=== PATIENT | male | born 1990 | race Caucasian/White ===

== ENCOUNTER 2019-01-20 18:17 | Emergency (ER) | payer BC, MEDICAID ==
[2019-01-20] MEDS ORDERED: Ketorolac 60 MG/2 ML SDV IM ONE (18:24)
[2019-01-20] MEDS ORDERED: Diazepam 5 MG Tab PO ONE (18:24)
--- NOTE | 2019-01-20 18:36 | EDM.PDOC ---
ED HPI GENERAL MEDICAL PROBLEM - General Chief Complaint: General Stated Complaint: INJURED HIP Time Seen by Provider: 01/20/19 18:20 Source of Information: Reports: Patient History Limitations: Reports: No Limitations - History of Present Illness Onset: Sudden Onset Date: 01/19/19 Onset Time: 20:00 Duration: Day(s): Location: Reports: Pelvis Quality: Reports: Ache, Sharp Severity: Moderate Improves with: Reports: None Worsens with: Reports: Movement Context: Reports: Activity Associated Symptoms: Reports: No Other Symptoms ED ROS GENERAL - Review of Systems Review Of Systems: Comprehensive ROS is negative, except as noted in HPI. Constitutional: Reports: No Symptoms HEENT: Reports: No Symptoms Respiratory: Reports: No Symptoms Cardiovascular: Reports: No Symptoms Endocrine: Reports: No Symptoms GI/Abdominal: Reports: No Symptoms : Reports: No Symptoms Musculoskeletal: Reports: Leg Pain (Left), Joint Pain (Left hip) Skin: Reports: No Symptoms Neurological: Reports: No Symptoms Psychiatric: Reports: No Symptoms Hematologic/Lymphatic: Reports: No Symptoms Immunologic: Reports: No Symptoms ED EXAM, GENERAL - Physical Exam Exam: See Below Exam Limited By: No Limitations General Appearance: Alert, WD/WN, Mild Distress Nose: Normal Inspection Throat/Mouth: Normal Inspection, Normal Oropharynx, No Airway Compromise Head: Atraumatic, Normocephalic Neck: Normal Inspection, Supple, Non-Tender, Full Range of Motion Respiratory/Chest: No Respiratory Distress, Lungs Clear, Normal Breath Sounds, No Accessory Muscle Use, Chest Non-Tender Cardiovascular: No Murmur, Tachycardia GI/Abdominal: Normal Bowel Sounds, Soft, Non-Tender Back Exam: Normal Inspection. No: CVA Tenderness (L), CVA Tenderness (R) Extremities: Leg Pain (Left lateral hip extending to mid thigh) Neurological: Alert, Oriented, Normal Cognition Psychiatric: Normal Affect, Normal Mood Skin Exam: Warm, Dry, Intact, Normal Color, No Rash Lymphatic: No Adenopathy Course - Orders/Labs/Meds Orders: Active Orders 24 hr Category Date Time Status Hip Min 2V or 3V Lt [CR] Stat Exams 01/20/19 18:24 Ordered Ketorolac [Toradol] Med 01/20/19 18:24 Once 60 mg IM ONETIME ONE diazePAM [Valium] Med 01/20/19 18:24 Once 10 mg PO ONETIME ONE - Radiology Interpretation Free Text/Narrative:: Left hip x-ray shows no fracture or dislocation - Re-Assessments/Exams Free Text/Narrative Re-Assessment/Exam: 01/20/19 19:02 Patient afebrile, vital signs stable, pain mostly resolved after medication. Departure - Departure Time of Disposition: 19:03 Disposition: Home, Self-Care 01 Condition: Good Clinical Impression: Strain of hip adductor muscle Qualifiers: Encounter type: initial encounter Laterality: left Qualified Code(s): S76.012A - Strain of muscle, fascia and tendon of left hip, initial encounter - Discharge Information Instructions: Muscle Strain, [id number], Adductor Muscle Strain Additional Instructions: Follow-up with PCP. Return to emergency department if symptoms continue or worsen - My Orders Last 24 Hours: My Active Orders 01/20/19 18:24 Hip Min 2V or 3V Lt [CR] Stat Ketorolac [Toradol] 60 mg IM ONETIME ONE diazePAM [Valium] 10 mg PO ONETIME ONE - Assessment/Plan Last 24 Hours: My Active Orders 01/20/19 18:24 Hip Min 2V or 3V Lt [CR] Stat Ketorolac [Toradol] 60 mg IM ONETIME ONE diazePAM [Valium] 10 mg PO ONETIME ONE Assessment:: Muscle strain Plan: Follow-up with PCP
--- NOTE | 2019-01-20 18:58 | CR ---
[id number] RAD/RAD Hip Left 2-3V EXAM: 2 VIEWS LEFT HIP. INDICATION: TRAUMA. COMPARISON: None. DISCUSSION: No fracture, dislocation or other acute osseous abnormality. IMPRESSION: 1. Negative exam. Mike Richard DO 01/20/19 [id number] Thank you for allowing us to participate in the care of your patient.
== END 2019-01-20 19:20 | disposition home or self-care (01) ==
LOC: KA.ED 18:17
DX: S76.012A Strain of muscle, fascia and tendon of left hip, initial encounter (principal); X58.XXXA Exposure to other specified factors, initial encounter; Y93.89 Activity, other specified
CPT/HCPCS: 73502; 96372; 99283; A9270; J1885

== ENCOUNTER 2019-01-22 18:17 | Emergency (ER) | payer BC, MEDICAID ==
[2019-01-22] MEDS ORDERED: Sodium Chloride 0.9% 1,000 ML IV ONE (18:46)
[2019-01-22] MEDS ORDERED: Ketorolac 30 MG/ML SDV IVPUSH ONE (18:46)
[2019-01-22] MEDS ORDERED: Sodium Chloride 0.9% 10 ML Syringe FLUSH PRN (18:46)
--- NOTE | 2019-01-22 18:54 | EDM.PDOC ---
ED HPI GENERAL MEDICAL PROBLEM - General Chief Complaint: Lower Extremity Injury/Pain Stated Complaint: PULLED MUSCLE? Time Seen by Provider: 01/22/19 18:45 Source of Information: Reports: Patient History Limitations: Reports: No Limitations - History of Present Illness INITIAL COMMENTS - FREE TEXT/NARRATIVE: She has a 28-year-old gentleman who presents to the emergency department this evening via private vehicle and has a complaint of abdominal pain and left hip pain. Patient was seen here 2 days ago for injury to left hip. At that time patient states that he was moving a dresser and pulled a muscle. Patient states pain in hip has remained but now he has abdominal pain. Patient states he has had a bowel movement in 3 days. Patient denies further injury, chest pain, shortness of breath, nausea, vomiting, diarrhea, flank pain, or previous abdominal surgery. Onset: Gradual Onset Date: 01/19/19 Duration: Day(s): Location: Reports: Abdomen, Lower Extremity, Left Quality: Reports: Ache, Sharp Improves with: Reports: None Worsens with: Reports: Movement Context: Reports: Activity Associated Symptoms: Reports: No Other Symptoms Treatments BLIND LACER: Reports: Other (see below) Other Treatments BLIND LACER: MUSCLE RELAXANT, ALEVE, TYLENOL, IBUPROFEN Left Pain Score (Numeric/FACES): 7 - Related Data Allergies Allergy/AdvReac Type Severity Reaction Status Date / Time amoxicillin Allergy Hives Verified 01/22/19 18:35 Home Meds: Home Meds Gabapentin [Neurontin] 900 mg PO DAILY 01/20/19 [History] Insulin Aspart [NovoLOG] 2 unit SQ TID 01/20/19 [History] Insulin Detemir [Levemir] 45 unit SQ BID 01/20/19 [History] Methocarbamol [Robaxin-750] 750 mg PO Q6HR #20 tablet 01/20/19 [Rx] Past Medical History Cardiovascular History: Reports: Blood Clots/VTE/DVT Respiratory History: Reports: PE Musculoskeletal History: Reports: Amputation Neurological History: Reports: Neuropathy, Diabetic Other Neuro History: BILATERAL FEET AND LEFT Psychiatric History: Reports: Depression Endocrine/Metabolic History: Reports: IDDM Other Endocrine/Metabolic History: Diabetes, unsure of type Dermatologic History: Reports: Other (See Below) Other Dermatologic History: MULTIPLE SCARS TO BODYY - Past Surgical History Cardiovascular Surgical History: Reports: None Neurological Surgical History: Reports: None Musculoskeletal Surgical History: Reports: Other (See Below) Other Musculoskeletal Surgeries/Procedures:: Left big toe removal Dermatological Surgical History: Reports: None Social & Family History - Family History Family Medical History: Noncontributory - Tobacco Use Smoking Status *Q: Never Smoker - Caffeine Use Caffeine Use: Reports: Coffee, Energy Drinks, Soda Other Caffeine Use: DIET POP - Recreational Drug Use Recreational Drug Use: No Review of Systems - Review of Systems Review Of Systems: Comprehensive ROS is negative, except as noted in HPI. Constitutional: Reports: No Symptoms Eyes: Reports: No Symptoms Ears: Reports: No Symptoms Nose: Reports: No Symptoms Mouth/Throat: Reports: No Symptoms Respiratory: Reports: No Symptoms Cardiovascular: Reports: No Symptoms GI/Abdominal: Reports: Abdominal Pain Genitourinary: Reports: No Symptoms Musculoskeletal: Reports: Leg Pain (Left hip and thigh) Skin: Reports: No Symptoms Neurological: Reports: No Symptoms Psychiatric: Reports: No Symptoms ED EXAM, GENERAL - Physical Exam Exam: See Below Exam Limited By: No Limitations General Appearance: Alert, WD/WN, Mild Distress Throat/Mouth: Normal Inspection, Normal Oropharynx, No Airway Compromise Head: Atraumatic, Normocephalic Neck: Normal Inspection, Supple, Non-Tender, Full Range of Motion Respiratory/Chest: No Respiratory Distress, Lungs Clear, Normal Breath Sounds, No Accessory Muscle Use, Chest Non-Tender Cardiovascular: Regular Rate, Rhythm, No Murmur, No Rub GI/Abdominal: Normal Bowel Sounds, Soft, Tender (Lower abdomen and suprapubic). No: Distended, Guarding, Rigid, Rebound, Hernia, Mass (Male) Exam: No Hernia, Normal Inspection Back Exam: Normal Inspection. No: CVA Tenderness (L), CVA Tenderness (R) Extremities: No Pedal Edema, Leg Pain (Tenderness to palpation of Left hip and left thigh. No edema, crepitus, ecchymosis, or firmness noted.) Neurological: Alert, Oriented, Normal Cognition Psychiatric: Normal Affect, Normal Mood Skin Exam: Warm, Dry, Intact, Normal Color, No Rash Lymphatic: No Adenopathy Course - Vital Signs Last Recorded V/S: Last Vital Signs Temp 98.3 F 01/22/19 18:21 Pulse 115 H 01/22/19 18:21 Resp 18 01/22/19 18:21 BP 135/77 01/22/19 18:21 Pulse Ox 99 01/22/19 18:21 - Orders/Labs/Meds Orders: Active Orders 24 hr Category Date Time Status Peripheral IV Care [RC] . DIRECTED Care 01/22/19 18:47 Ordered Abdomen Pelvis wo Cont [CT] Stat Exams 01/22/19 18:46 Ordered CBC WITH AUTO DIFF [HEME] Stat Lab 01/22/19 18:46 Ordered COMPREHENSIVE METABOLIC PN,CMP [CHEM] Stat Lab 01/22/19 18:46 Ordered Sodium Chloride 0.9% @ 999 MLS/HR (1000ml) Med 01/22/19 18:46 Ordered Sodium Chloride 0.9% [Normal Saline] 1,000 ml IV .BOLUS Sodium Chloride 0.9% [Saline Flush] Med 01/22/19 18:46 Ordered 10 ml FLUSH Q8HR PRN Peripheral IV Insertion Adult [OM.PC] Routine Oth 01/22/19 18:46 Ordered Medication Orders Sodium Chloride (Normal Saline) 1,000 mls @ 999 mls/hr IV .BOLUS ONE Stop: 01/22/19 19:46 Sodium Chloride (Saline Flush) 10 ml FLUSH Q8HR PRN PRN Reason: keep vein open Meds: Medications Generic Name Dose Route Start Last Admin Trade Name Freq PRN Reason Stop Dose Admin Sodium Chloride 1,000 mls @ 999 mls/hr 01/22/19 18:46 Normal Saline IV 01/22/19 19:46 .BOLUS ONE Sodium Chloride 10 ml 01/22/19 18:46 Saline Flush FLUSH Q8HR PRN keep vein open Discontinued Medications Generic Name Dose Route Start Last Admin Trade Name Freq PRN Reason Stop Dose Admin Ketorolac Tromethamine 30 mg 01/22/19 18:46 Toradol IVPUSH 01/22/19 18:47 ONETIME ONE - Radiology Interpretation Free Text/Narrative:: CT abdomen and pelvis shows no acute abnormality in abdomen or pelvis - Re-Assessments/Exams Free Text/Narrative Re-Assessment/Exam: 01/22/19 20:29 Patient afebrile, nontoxic appearing, vital signs stable. Discuss at length with patient about his uncontrolled diabetes. Patient currently checks his sugars once to twice a week and is intermittently in taking his insulin. Instructed him he needs to check it daily and take insulin as directed. Patient will follow-up with PCP in 2 days. WBC mildly elevated, but no source of infection. 01/22/19 20:30 Departure - Departure Time of Disposition: 20:34 Disposition: Home, Self-Care 01 Condition: Good Clinical Impression: Insulin dependent diabetes mellitus, Hyperglycemia Abdominal pain Qualifiers: Abdominal location: generalized Qualified Code(s): R10.84 - Generalized abdominal pain Strain of hip adductor muscle Qualifiers: Encounter type: initial encounter Laterality: left Qualified Code(s): S76.012A - Strain of muscle, fascia and tendon of left hip, initial encounter - Discharge Information Instructions: Diabetes Mellitus and Standards of Medical Care, Diabetes Mellitus and Nutrition, Adult, Abdominal Pain, Adult, [id number] Referrals: PCP,Not In Area [Primary Care Provider] - Additional Instructions: Follow-up with PCP in next 2 days. Check glucose daily and take insulin as directed. Return to emergency department sooner if symptoms continue or worsen. - My Orders Last 24 Hours: My Active Orders 01/22/19 18:46 Abdomen Pelvis wo Cont [CT] Stat CBC WITH AUTO DIFF [HEME] Stat COMPREHENSIVE METABOLIC PN,CMP [CHEM] Stat Sodium Chloride 0.9% @ 999 MLS/HR (1000ml) Sodium Chloride 0.9% [Normal Saline] 1,000 ml IV .BOLUS Sodium Chloride 0.9% [Saline Flush] 10 ml FLUSH Q8HR PRN Peripheral IV Insertion Adult [OM.PC] Routine 01/22/19 18:47 Peripheral IV Care [RC] . DIRECTED - Assessment/Plan Last 24 Hours: My Active Orders 01/22/19 18:46 Abdomen Pelvis wo Cont [CT] Stat CBC WITH AUTO DIFF [HEME] Stat COMPREHENSIVE METABOLIC PN,CMP [CHEM] Stat Sodium Chloride 0.9% @ 999 MLS/HR (1000ml) Sodium Chloride 0.9% [Normal Saline] 1,000 ml IV .BOLUS Sodium Chloride 0.9% [Saline Flush] 10 ml FLUSH Q8HR PRN Peripheral IV Insertion Adult [OM.PC] Routine 01/22/19 18:47 Peripheral IV Care [RC] . DIRECTED Assessment:: Abdominal pain Plan: Follow-up with PCP
[2019-01-22] MEDS ORDERED: Ondansetron 4 MG/2 ML SDV IVPUSH ONE (18:57)
[2019-01-22 19:29] LABS: CHLORIDE,CL 99 mmol/L (98-115); SODIUM,NA 134 mmol/L (136-145)
[2019-01-22] MEDS ORDERED: Insulin Isophane NPH, Human 100 Units/ML 10 ML Vial ONE (19:42)
--- NOTE | 2019-01-22 20:04 | CT ---
[id number] CT/CT Abdomen Pelvis WO IV EXAM: CT Abdomen Pelvis WO IV CLINICAL DATA: ABD PAIN. COMPARISON STUDY: None. FINDINGS: Findings are within limitation of no contrast material. Lung bases are clear. Liver, spleen, gallbladder, pancreas, adrenal glands, and kidneys are unremarkable. No urinary tract calculi. Urinary bladder is unremarkable. No bowel obstruction or inflammation. Appendix is normal. IMPRESSION: No significant abnormality in the abdomen or pelvis. Luciano Bailey MD 01/22/192002 Thank you for allowing us to participate in the care of your patient.
[2019-01-22] MEDS ORDERED: Ondansetron 4 MG Tab.DIS PO ONE (20:34)
== END 2019-01-22 21:15 | disposition home or self-care (01) ==
LOC: KA.ED 18:17
DX: S76.012A Strain of muscle, fascia and tendon of left hip, initial encounter (principal); E11.65 Type 2 diabetes mellitus with hyperglycemia; R10.84 Generalized abdominal pain; E11.40 Type 2 diabetes mellitus with diabetic neuropathy, unspecified; Z88.0 Allergy status to penicillin; Z79.4 Long term (current) use of insulin; Z79.899 Other long term (current) drug therapy; X58.XXXA Exposure to other specified factors, initial encounter
CPT/HCPCS: 36415; 74176; 80053; 81001; 82962; 85025; 96374; 96375; 99284-25; A9270-GY; J1885; J2405; J7030

== ENCOUNTER 2019-10-26 18:27 | Emergency (ER) | payer BC, MEDICAID, OTHER ==
[2019-10-26] MEDS ORDERED: Sodium Chloride 0.9% 1,000 ML ONE (18:45)
--- NOTE | 2019-10-26 18:47 | EDM.PDOC ---
<BettsChetan Dominga - Last Filed: 10/26/19 19:15> ED HPI GENERAL MEDICAL PROBLEM - General Chief Complaint: Behavioral/Psych Stated Complaint: UNRESPONSIVE, DIABETIC REACTION Time Seen by Provider: 10/26/19 18:28 Source of Information: Reports: Patient, EMS, Police History Limitations: Reports: No Limitations - History of Present Illness INITIAL COMMENTS - FREE TEXT/NARRATIVE: Presents via ambulance after former girlfriend summoned 911. José Miguel has had and appears to have experienced hypoglycemia as well as been making suicidal ideation and posts on social media of which law enforcement shared with us. Ambulance arrived finding hypoglycemic with Accu-Chek at 33. IV was established and treated with D10 and transported to the emergency department accompanied with law enforcement. History of poor diabetic compliance is acknowledged as well as his recent CABG for which he is uncertain as to what was done or how many vessels were done, but does acknowledge [place] in [place]. When questioned on his ideation and gesture if he took extra insulin he denies to me that this was done in self-harm. Law enforcement states the previous girlfriend stated that he did not handle their break-up well and that is when social media posts started occurring with end of life comments. Past history of poor diabetic compliance, sequela of medical illness secondary of that, as well as psychiatric disturbance. Onset: Today Duration: Minutes: Location: Reports: Generalized Severity: Severe Improves with: Reports: Medication Worsens with: Reports: None Context: Reports: Other (Ideation) - Related Data Allergies Allergy/AdvReac Type Severity Reaction Status Date / Time amoxicillin Allergy Hives Verified 10/26/19 18:38 Home Meds: Home Meds Gabapentin [Neurontin] 900 mg PO DAILY 01/20/19 [History] Insulin Aspart [NovoLOG] 2 unit SQ TID 01/20/19 [History] Insulin Detemir [Levemir] 30 unit SQ DAILY 01/20/19 [History] Escitalopram Oxalate [Lexapro] 20 mg PO DAILY 10/26/19 [History] Rivaroxaban [Xarelto] 20 mg PO DAILY 10/26/19 [History] Past Medical History Cardiovascular History: Reports: Blood Clots/VTE/DVT, CAD, High Cholesterol Respiratory History: Reports: PE Gastrointestinal History: Reports: None Musculoskeletal History: Reports: Amputation Neurological History: Reports: Neuropathy, Diabetic Other Neuro History: BILATERAL FEET AND LEFT Psychiatric History: Reports: Depression, Suicide Attempt, Suicidal Ideation Endocrine/Metabolic History: Reports: IDDM Other Endocrine/Metabolic History: Diabetes, unsure of type Dermatologic History: Reports: Other (See Below) Other Dermatologic History: MULTIPLE SCARS TO BODYY - Past Surgical History Cardiovascular Surgical History: Reports: Coronary Artery Bypass Neurological Surgical History: Reports: None Musculoskeletal Surgical History: Reports: Other (See Below) Other Musculoskeletal Surgeries/Procedures:: Left big toe removal Dermatological Surgical History: Reports: None Social & Family History - Family History Family Medical History: Noncontributory - Caffeine Use Caffeine Use: Reports: Coffee, Energy Drinks, Soda Other Caffeine Use: DIET POP ED ROS GENERAL - Review of Systems Review Of Systems: Comprehensive ROS is negative, except as noted in HPI. ED EXAM, GENERAL - Physical Exam Exam: See Below Free Text/Narrative:: Alert oriented x3 hesitant in cooperation but is not classified as non- cooperative. He denies any suicidal thought or gesture despite being confronted with social media documentation. PERRLA EOM intact. HEENT negative discharge or deformity. Neck soft supple no lymphadenopathy no JVD. Thorax is clear diminished breath sounds secondary of poor inspiratory cycle, likely cooperation. Cardiac S1-S2 I do not appreciate murmur. There is a sternal scar from his coronary artery bypass grafting. Abdomen is soft bowel sounds are present there is no tenderness. There are scars to the upper abdominal region as well as thorax. rectal is deferred. Lower extremities are free of any edema. Right foot is intact with skin warm and dry. Left foot shows amputation of the fifth digit as well as an irritation to the medial surface of the great toe, no evidence of infection at this time. EKG INTERPRETATION EKG Date: 10/26/19 Time: 19:05 Rhythm: NSR Rate (Beats/Min): 109 [place]: Normal P-Wave: Present QRS: Normal ST-T: Normal QT: Normal Comparison: NA - No Prior EKG Departure - Departure Disposition: DC/Tfer to Acute Hospital 02 Clinical Impression: Rhabdomyolysis, Hypoglycemia due to type 1 diabetes mellitus, Leukocytosis - Discharge Information Referrals: Pankaj Scott MD [Primary Care Provider] - Forms: ED Department Discharge - Problem List & Annotations (1) Hypoglycemia SNOMED Code(s): 227185069 Code(s): E16.2 - HYPOGLYCEMIA, UNSPECIFIED Status: Acute Priority: High Current Visit: No (2) Suicidal ideation SNOMED Code(s): 2299725 Code(s): R45.851 - SUICIDAL IDEATIONS Status: Acute Priority: High Current Visit: No (3) 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 SNOMED Code(s): 34676407, 170028721 Code(s): E10.40 - TYPE 1 DIABETES MELLITUS WITH DIABETIC NEUROPATHY, UNSP; E10.65 - TYPE 1 DIABETES MELLITUS WITH HYPERGLYCEMIA Status: Acute Priority: High Current Visit: No (4) Leukocytosis, unspecified SNOMED Code(s): 425133415, 373903168 Code(s): D72.829 - ELEVATED WHITE BLOOD CELL COUNT, UNSPECIFIED Status: Acute Priority: High Current Visit: Yes - Problem List Review Problem List Initiated/Reviewed/Updated: Yes <Samson Mann - Last Filed: 10/26/19 22:54> Course - Vital Signs Last Recorded V/S: Last Vital Signs Temp 97.1 F 10/26/19 18:30 Pulse 106 H 10/26/19 21:06 Resp 12 10/26/19 21:06 BP 141/84 H 10/26/19 21:06 Pulse Ox 97 10/26/19 21:06 - Orders/Labs/Meds Orders: Active Orders 24 hr Category Date Time Status Blood Glucose Check, Bedside [RC] ONETIME Care 10/26/19 18:56 Active Blood Glucose Check, Bedside [RC] ONETIME Care 10/26/19 19:19 Active Blood Glucose Check, Bedside [RC] ONETIME Care 10/26/19 19:40 Active Blood Glucose Check, Bedside [RC] ONETIME Care 10/26/19 20:56 Active EKG Documentation Completion [RC] ASDIRECTED Care 10/26/19 18:41 Active CULTURE BLOOD [BC] Stat Lab 10/26/19 19:05 Received CULTURE BLOOD [BC] Stat Lab 10/26/19 19:22 Received Sodium Chloride 0.9% [Normal Saline] 1,000 ml Med 10/26/19 19:00 Active IV ASDIRECTED Sodium Chloride 0.9% [Normal Saline] 1,000 ml Med 10/26/19 21:00 Ordered IV ASDIRECTED Blood Culture x2 Reflex Set [OM.PC] Stat Oth 10/26/19 19:09 Ordered Suicide Precautions [OM.PC] Routine Oth 10/26/19 19:07 Ordered EKG 12 Lead [EK] Urgent Ther 10/26/19 18:40 Ordered Medication Orders Sodium Chloride (Normal Saline) 1,000 mls @ 200 mls/hr IV ASDIRECTED ANIVAL Last Infusion: 10/26/19 18:59 Dose: 999 mls/hr Documented by: Admin: 10/26/19 18:55 Dose: 200 mls/hr Documented by: ETELVINA Sodium Chloride (Normal Saline) 1,000 mls @ 500 mls/hr IV ASDIRECTED ANIVAL Last Admin: 10/26/19 21:01 Dose: 500 mls/hr Documented by: ETELVINA Labs: Laboratory Tests 10/26/19 10/26/19 10/26/19 Range/Units 18:45 18:45 18:45 WBC 17.47 H (5.00-10.00) 10^3/uL RBC 5.31 (4.50-6.00) 10^6/uL Hgb 15.1 (13.0-17.0) g/dL Hct 45.5 (40.0-52.0) % MCV 85.7 D (82.0-92.0) fL MCH 28.4 (27.0-31.0) pg MCHC 33.2 (32.0-36.0) g/dL RDW 12.8 (11.5-14.5) % Plt Count 311 D (150-400) 10^3/uL MPV 9.7 (7.4-10.4) fL Immature Gran % (Auto) 0.2 (0.0-5.0) % Neut % (Auto) 89.8 H (50.0-70.0) % Lymph % (Auto) 6.4 L (20.0-40.0) % [place] % (Auto) 3.6 (2.0-8.0) % Eos % (Auto) 0.0 L (1.0-3.0) % Baso % (Auto) 0.0 (0.0-1.0) % Neut # (Auto) 15.69 H (2.50-7.00) 10^3/uL Lymph # (Auto) 1.12 (1.00-4.00) 10^3/uL [place] # (Auto) 0.63 (0.10-0.80) 10^3/uL Eos # (Auto) 0.00 L (0.10-0.30) 10^3/uL Baso # (Auto) 0.00 (0.00-0.10) 10^3/uL Immature Gran # (Auto) 0.03 (0.00-0.50) 10^3/uL Sodium 143 (136-145) mmol/L Potassium 3.5 (3.3-5.3) mmol/L Chloride 101 (98-115) mmol/L Carbon Dioxide 27.9 D (21.0-32.0) mmol/L Anion Gap 17.6 H (5-15) mmol/L BUN 17 (6-25) mg/dL Creatinine 0.56 (0.51-1.17) mg/dL Est Cr Clr Drug Dosing 198.14 mL/min Estimated GFR (MDRD) > 60 mL/min Glucose 204 H (75 - 99) mg/dL Lactic Acid 1.1 (0.4-2.0) mmol/L Calcium 8.6 L (8.7-10.3) mg/dL Total Bilirubin 0.3 (0.2-1.0) mg/dL AST 21 (15-37) U/L ALT 7 L (12-78) U/L Alkaline Phosphatase 143 H (46-116) IU/L Creatine Kinase (26-276) U/L Total Protein 8.2 (6.4-8.2) g/dL Albumin 3.40 (3.00-4.80) g/dL Specimen Type Urine Color (YELLOW) Urine Appearance (CLEAR) Urine pH (5.0-9.0) Ur Specific [place] (1.005-1.030) Urine Protein (NEGATIVE) mg/dL Urine Glucose (UA) (NEGATIVE) mg/dL Urine Ketones (NEGATIVE) mg/dL Urine Occult Blood (NEGATIVE) Urine Nitrite (NEGATIVE) Urine Bilirubin (NEGATIVE) Urine Urobilinogen (0.2-1.0) E.U./dL Ur Leukocyte Esterase (NEGATIVE) Urine RBC (0-5) /HPF Urine WBC (0-5) /HPF Ur Epithelial Cells /LPF Urine Bacteria (NONE TO FEW) /HPF Urine Mucus (NEGATIVE) /LPF Urinalysis Comment Urine Opiates Screen (NEGATIVE) Ur Oxycodone Screen (NEGATIVE) Urine Methadone Screen (NEGATIVE) Ur Propoxyphene Screen (NEGATIVE) Acetaminophen (10.0-30.0) ug/mL Ur Barbiturates Screen (NEGATIVE) Ur Tricyclics Screen (NEGATIVE) Ur Phencyclidine Scrn (NEGATIVE) Ur Amphetamine Screen (NEGATIVE) U Methamphetamines Scrn (NEGATIVE) U Benzodiazepines Scrn (NEGATIVE) U Cocaine Metab Screen (NEGATIVE) U Marijuana (THC) Screen (NEGATIVE) Ethyl Alcohol < 3 (NONE DETECTED) mg/dL 10/26/19 10/26/19 10/26/19 Range/Units 19:00 19:00 19:53 WBC (5.00-10.00) 10^3/uL RBC (4.50-6.00) 10^6/uL Hgb (13.0-17.0) g/dL Hct (40.0-52.0) % MCV (82.0-92.0) fL MCH (27.0-31.0) pg MCHC (32.0-36.0) g/dL RDW (11.5-14.5) % Plt Count (150-400) 10^3/uL MPV (7.4-10.4) fL Immature Gran % (Auto) (0.0-5.0) % Neut % (Auto) (50.0-70.0) % Lymph % (Auto) (20.0-40.0) % [place] % (Auto) (2.0-8.0) % Eos % (Auto) (1.0-3.0) % Baso % (Auto) (0.0-1.0) % Neut # (Auto) (2.50-7.00) 10^3/uL Lymph # (Auto) (1.00-4.00) 10^3/uL [place] # (Auto) (0.10-0.80) 10^3/uL Eos # (Auto) (0.10-0.30) 10^3/uL Baso # (Auto) (0.00-0.10) 10^3/uL Immature Gran # (Auto) (0.00-0.50) 10^3/uL Sodium (136-145) mmol/L Potassium (3.3-5.3) mmol/L Chloride (98-115) mmol/L Carbon Dioxide (21.0-32.0) mmol/L Anion Gap (5-15) mmol/L BUN (6-25) mg/dL Creatinine (0.51-1.17) mg/dL Est Cr Clr Drug Dosing mL/min Estimated GFR (MDRD) mL/min Glucose (75 - 99) mg/dL Lactic Acid (0.4-2.0) mmol/L Calcium (8.7-10.3) mg/dL Total Bilirubin (0.2-1.0) mg/dL AST (15-37) U/L ALT (12-78) U/L Alkaline Phosphatase (46-116) IU/L Creatine Kinase 599 H* (26-276) U/L Total Protein (6.4-8.2) g/dL Albumin (3.00-4.80) g/dL Specimen Type Urincc Urine Color Dark yellow H (YELLOW) Urine Appearance Clear (CLEAR) Urine pH 6.0 (5.0-9.0) Ur Specific [place] 1.025 (1.005-1.030) Urine Protein 100 H (NEGATIVE) mg/dL Urine Glucose (UA) 250 H (NEGATIVE) mg/dL Urine Ketones Negative (NEGATIVE) mg/dL Urine Occult Blood Trace-lysed H (NEGATIVE) Urine Nitrite Negative (NEGATIVE) Urine Bilirubin Small H (NEGATIVE) Urine Urobilinogen 0.2 (0.2-1.0) E.U./dL Ur Leukocyte Esterase Negative (NEGATIVE) Urine RBC 0-5 (0-5) /HPF Urine WBC Not seen (0-5) /HPF Ur Epithelial Cells Rare /LPF Urine Bacteria Not seen (NONE TO FEW) /HPF Urine Mucus Moderate H (NEGATIVE) /LPF Urinalysis Comment See note Urine Opiates Screen (NEGATIVE) Ur Oxycodone Screen (NEGATIVE) Urine Methadone Screen (NEGATIVE) Ur Propoxyphene Screen (NEGATIVE) Acetaminophen < 1.0 L (10.0-30.0) ug/mL Ur Barbiturates Screen (NEGATIVE) Ur Tricyclics Screen (NEGATIVE) Ur Phencyclidine Scrn (NEGATIVE) Ur Amphetamine Screen (NEGATIVE) U Methamphetamines Scrn (NEGATIVE) U Benzodiazepines Scrn (NEGATIVE) U Cocaine Metab Screen (NEGATIVE) U Marijuana (THC) Screen (NEGATIVE) Ethyl Alcohol (NONE DETECTED) mg/dL 10/26/19 Range/Units 19:53 WBC (5.00-10.00) 10^3/uL RBC (4.50-6.00) 10^6/uL Hgb (13.0-17.0) g/dL Hct (40.0-52.0) % MCV (82.0-92.0) fL MCH (27.0-31.0) pg MCHC (32.0-36.0) g/dL RDW (11.5-14.5) % Plt Count (150-400) 10^3/uL MPV (7.4-10.4) fL Immature Gran % (Auto) (0.0-5.0) % Neut % (Auto) (50.0-70.0) % Lymph % (Auto) (20.0-40.0) % [place] % (Auto) (2.0-8.0) % Eos % (Auto) (1.0-3.0) % Baso % (Auto) (0.0-1.0) % Neut # (Auto) (2.50-7.00) 10^3/uL Lymph # (Auto) (1.00-4.00) 10^3/uL [place] # (Auto) (0.10-0.80) 10^3/uL Eos # (Auto) (0.10-0.30) 10^3/uL Baso # (Auto) (0.00-0.10) 10^3/uL Immature Gran # (Auto) (0.00-0.50) 10^3/uL Sodium (136-145) mmol/L Potassium (3.3-5.3) mmol/L Chloride (98-115) mmol/L Carbon Dioxide (21.0-32.0) mmol/L Anion Gap (5-15) mmol/L BUN (6-25) mg/dL Creatinine (0.51-1.17) mg/dL Est Cr Clr Drug Dosing mL/min Estimated GFR (MDRD) mL/min Glucose (75 - 99) mg/dL Lactic Acid (0.4-2.0) mmol/L Calcium (8.7-10.3) mg/dL Total Bilirubin (0.2-1.0) mg/dL AST (15-37) U/L ALT (12-78) U/L Alkaline Phosphatase (46-116) IU/L Creatine Kinase (26-276) U/L Total Protein (6.4-8.2) g/dL Albumin (3.00-4.80) g/dL Specimen Type Urine Color (YELLOW) Urine Appearance (CLEAR) Urine pH (5.0-9.0) Ur Specific [place] (1.005-1.030) Urine Protein (NEGATIVE) mg/dL Urine Glucose (UA) (NEGATIVE) mg/dL Urine Ketones (NEGATIVE) mg/dL Urine Occult Blood (NEGATIVE) Urine Nitrite (NEGATIVE) Urine Bilirubin (NEGATIVE) Urine Urobilinogen (0.2-1.0) E.U./dL Ur Leukocyte Esterase (NEGATIVE) Urine RBC (0-5) /HPF Urine WBC (0-5) /HPF Ur Epithelial Cells /LPF Urine Bacteria (NONE TO FEW) /HPF Urine Mucus (NEGATIVE) /LPF Urinalysis Comment Urine Opiates Screen Negative (NEGATIVE) Ur Oxycodone Screen Negative (NEGATIVE) Urine Methadone Screen Negative (NEGATIVE) Ur Propoxyphene Screen Negative (NEGATIVE) Acetaminophen (10.0-30.0) ug/mL Ur Barbiturates Screen Negative (NEGATIVE) Ur Tricyclics Screen Negative (NEGATIVE) Ur Phencyclidine Scrn Negative (NEGATIVE) Ur Amphetamine Screen Negative (NEGATIVE) U Methamphetamines Scrn Negative (NEGATIVE) U Benzodiazepines Scrn Negative (NEGATIVE) U Cocaine Metab Screen Negative (NEGATIVE) U Marijuana (THC) Screen Negative (NEGATIVE) Ethyl Alcohol (NONE DETECTED) mg/dL Meds: Medications Generic Name Dose Route Start Last Admin Trade Name Freq PRN Reason Stop Dose Admin Sodium Chloride 1,000 mls @ 200 mls/hr 10/26/19 19:00 10/26/19 18:59 Normal Saline IV 999 mls/hr ASDIRECTED ANIVAL Infusion Sodium Chloride 1,000 mls @ 500 mls/hr 10/26/19 21:00 10/26/19 21:01 Normal Saline IV 500 mls/hr ASDIRECTED ANIVAL Administration Discontinued Medications Generic Name Dose Route Start Last Admin Trade Name Freq PRN Reason Stop Dose Admin Sodium Chloride Confirm 10/26/19 18:45 10/26/19 18:56 Normal Saline Administered 10/26/19 18:46 Not Given Dose 1,000 mls @ as directed .ROUTE .STK-MED ONE Meropenem 1 gm/ Sodium 100 mls @ 200 mls/hr 10/26/19 19:10 10/26/19 19:39 Chloride IV 10/26/19 19:39 200 mls/hr ONETIME ONE Administration - Re-Assessments/Exams Free Text/Narrative Re-Assessment/Exam: assumed care at 1999, revisited with patient, he was able to void, added covid 19, however unable to run this test here, he states ahving fatigue, feeling ill, and chills all started today, no other URI symptoms. After having a long conversation and update on why he is here, he denies any extra insulin or ingested anything to harm himself, he states no eTOH or illicit drugs, he notes Eating breakfast cereal taking 15 units of NovoLog and he took his "32" units of insulin last night , which he takes at night, on his pen it says 23 units, and it was confirmed by his emergency contact. When asked about suicidal ideation, patient denies, however on social media confirmed by police and his ex finance, there were two posts on [employer] saying "see you on the flip side" and "gone forever" the ex finance responded on the post, "going where?", patient responded "gone" I asked him what that meant, he said, meant that recently his ex finance and him broke up, and he was letting social media know she was gone forever. Patient denies SI at this time, however sitter remains at bedside. 10/26/19 20:26 10/26/19 21:15 paged gregory stonecutter apprentice hand, elevated CK, hypoglycemia, neg ketone on UA, normal lactic, elevated anion gap, unable to get a salicylate level here it is a 2 day send out. iu ordered second bag of NS at 500 ml/hr, spoke with stonecutter apprentice hand hospitalist. going to admit to [facility]. waiting on hospital room than EMS will be called for transferred. patient resting comfortably in bed alert and oriented x3 10/26/19 21:27 Departure - Departure Time of Disposition: 21:13 Condition: Poor, Serious - Discharge Information *PRESCRIPTION DRUG MONITORING PROGRAM REVIEWED*: Not Applicable *COPY OF PRESCRIPTION DRUG MONITORING REPORT IN PATIENT NINFA: Not Applicable Sepsis Event Note (ED) - Focused Exam Vital Signs: Vital Signs Temp Pulse Resp BP Pulse Ox 10/26/19 21:06 106 H 12 141/84 H 97 10/26/19 20:43 104 H 13 136/81 97 10/26/19 20:21 113 H 16 143/87 H 97 10/26/19 20:02 99 14 132/85 98 10/26/19 19:53 110 H 15 174/92 H 97 10/26/19 19:22 109 H 14 143/95 H 10/26/19 19:08 110 H 14 138/94 H 96 10/26/19 18:45 110 H 16 134/97 H 97 10/26/19 18:30 97.1 F 112 H 14 126/92 H 95 - My Orders Last 24 Hours: My Active Orders 10/26/19 20:56 Blood Glucose Check, Bedside [RC] ONETIME 10/26/19 21:00 Sodium Chloride 0.9% [Normal Saline] 1,000 ml IV ASDIRECTED - Assessment/Plan Last 24 Hours: My Active Orders 10/26/19 20:56 Blood Glucose Check, Bedside [] ONETIME 10/26/19 21:00 Sodium Chloride 0.9% [Normal Saline] 1,000 ml IV ASDIRECTED
[2019-10-26] MEDS ORDERED: Sodium Chloride 0.9% 1,000 ML IV SCH ×2 (19:00→21:00)
[2019-10-26] MEDS ORDERED: Meropenem 1 GM in Sodium Chloride 0.9% 100 ML IV ONE (19:10)
[2019-10-26 19:11] LABS: ANION GAP 17.6 mmol/L (5-15); CHLORIDE,CL 101 mmol/L (98-115); SODIUM,NA 143 mmol/L (136-145)
[2019-10-26 20:35] LABS: BARBITURATE SCREEN,URINE NEGATIVE (NEGATIVE); BENZODIAZEPINES SCREEN,URINE NEGATIVE (NEGATIVE); TCA SCREEN,URINE NEGATIVE (NEGATIVE); THC SCREEN,URINE 50 NG/ML NEGATIVE (NEGATIVE)
== END 2019-10-26 23:00 ==
LOC: KA.ED 18:27
DX: E10.649 Type 1 diabetes mellitus with hypoglycemia without coma (principal); M62.82 Rhabdomyolysis; D72.829 Elevated white blood cell count, unspecified; I25.10 Atherosclerotic heart disease of native coronary artery without angina pectoris; E78.00 Pure hypercholesterolemia, unspecified; E10.40 Type 1 diabetes mellitus with diabetic neuropathy, unspecified; F32.9 Major depressive disorder, single episode, unspecified; Z88.1 Allergy status to other antibiotic agents; Z79.899 Other long term (current) drug therapy; Z86.718 Personal history of other venous thrombosis and embolism; Z86.711 Personal history of pulmonary embolism; Z79.01 Long term (current) use of anticoagulants
CPT/HCPCS: 36415; 80053; 80305-QW; 80307; 81001; 82550; 82962; 83605; 85025; 87040; 93005; 96361; 96365; 99284; 99285-25; J2185; J7030; J7050